=== PATIENT | female | born 1990 | race Caucasian/White ===

== ENCOUNTER 2016-04-23 08:04 | Emergency (ER) | payer OTHER ==
[2016-04-23 08:13] VITALS: BP 124/78; PULSE 85; RESP 16; TEMP 97.3; O2SAT 98
--- NOTE | 2016-04-23 08:33 | UCPHY ---
H & P Time Seen by Provider: 04/23/16 08:27 Patient Type: New HPI/ROS: CHIEF COMPLAINT: nasal congestion with sore throat HISTORY OF PRESENT ILLNESS: 26-year-old female who is now in her 16 weeks of has yet to feel quickening. She noted to have nasal congestion and stuffiness for the last 9 days. However as of yesterday she started having a pretty bad sore throat and particularly on the right peritonsillar area with pain with swallowing pain emanating into the right ear. No fevers or chills. No sinus pressure. No cough. REVIEW OF SYSTEMS: Constitutional: No fever, no chills.. ENT: See above. Unbundler: 1st . heart tones noted. No clicking Musculoskeletal: No back pain. Skin: No rashes. Neurological: No headache. Smoking Status: Never smoked Physical Exam: General Appearance: Alert, no distress. Afebrile. Normal phonation. No respiratory distress. Nontoxic Eyes: Pupils equal and round no pallor or injection. No icterus ENT, Mouth: Mucous membranes moist. Pharynx mild erythema particular on the right tonsil with some effacement without exudate. No petechiae. TM Clear. Sinuses nontender. Neck: No adenopathy. Supple. No JVD. Trachea in midline. Respiratory: There are no retractions, lungs are clear to auscultation. Skin: Warm and dry, no rashes. Constitutional: Initial Vital Signs Temperature (C) 36.3 C 04/23/16 08:10 Heart Rate 85 04/23/16 08:10 Respiratory Rate 16 04/23/16 08:10 Blood Pressure 124/78 H 04/23/16 08:10 O2 Sat (%) 98 04/23/16 08:10 O2 Delivery Mode Room Air Allergies/Adverse Reactions: erythromycin base Allergy (Verified 04/23/16 08:09) Home Medications: Medication Instructions Recorded Vits W-Ca,Fe,FA(<1Mg) 04/23/16 Medical Decision Making ED Course/Re-evaluation: Diagnostic considerations include, but are not limited to, the following: URI, sinusitis, pharyngitis, otitis media, pneumonia, allergy. Strep results negative. Antibiotic stewardship reviewed with patient - Data Points Laboratory Results: 04/23/16 04/23/16 Unknown 08:40 Group A Strep Screen NEGATIVE (NEGATIVE) Group A Strep DNA Pending Departure - Departure Disposition: Home, Routine, Self-Care Clinical Impression: Acute viral pharyngitis Condition: Good Instructions: Pharyngitis (ED) Additional Instructions: [id number]-[id number] measures such as Tylenol or lozenges - PQRS PQRS Measurement: Not applicable
== END 2016-04-23 09:12 | disposition home or self-care (01) ==
LOC: CED 08:04
DX: R09.81 Nasal congestion (principal); J02.9 Acute pharyngitis, unspecified; Z3A.16 16 weeks gestation of pregnancy
CPT/HCPCS: 87880-PO; 99203-PO; G0463-PO